=== PATIENT | female | born 1985 | race Caucasian/White ===

== ENCOUNTER 2017-01-01 16:50 | Emergency (ER) | payer OTHER ==
[2017-01-01 17:13] VITALS: BP 148/98
--- NOTE | 2017-01-01 17:57 | UC ---
General HPI - HPI Summary HPI Summary: ONE WEEK OF HIGH BLOOD PRESSURE, (150/100) ALSO HAS BEEN HAVING SEVERAL MILD HEADACHES OVER THE LAST WEEK, NOT SEVERE, BUT PERSISTENT, THAT GO AWAY WITH IBUPROFEN. HISTORY OF MIGRAINES. NO CHENGES IN VIOIN. NO MOTOR DEFICITS. HAS ALSO HAD INCREASED STRESS. NO CHEST PAIN. NO DIZZINESS. NO SHORTNESS OF BREATH. - History of Current Complaint Chief Complaint: UCGeneralIllness Stated Complaint: HIGH BP/HEADACHE Time Seen by Provider: 01/01/17 17:14 Hx Obtained From: Patient Onset/Duration: Gradual Onset, Lasting Weeks, Resolved - CURRENTLYT RESOLVED Onset Severity: Moderate Current Severity: None Associated Signs & Symptoms: Positive: Headache. Negative: Confusion, Cough, Chest Pain, Dizziness, Diarrhea, Dysuria, Edema, Fever, Nausea, Syncope, SOB, Trauma - Allergy/Home Medications Allergies/Adverse Reactions: Allergies Allergy/AdvReac Type Severity Reaction Status Date / Time Sumatriptan [From Imitrex] Allergy Severe Anaphylatic Verified 08/30/12 16:15 Shock bret Allergy Rash Uncoded 06/17/14 13:53 Home Medications: Home Medications NK [No Home Medications Reported] 01/01/17 [History Confirmed 01/01/17] PMH/Surg Hx/FS Hx/Imm Hx Previously Healthy: Yes Endocrine History Of: Denies: Diabetes, Thyroid Disease Cardiovascular History Of: Denies: Cardiac Disorders, Hypertension Respiratory History Of: Denies: COPD, Asthma GI/ History Of: Denies: Ulcer - Surgical History Surgical History: Yes Surgery Procedure, Year, and Place: tonsils Oct 2008 - Family History Known Family History: Negative: Cardiac Disease, Hypertension - Social History Occupation: Employed Full-time Lives: With Family Alcohol Use: None Substance Use Type: None Smoking Status (MU): Never Smoked Tobacco - Immunization History Most Recent Influenza Vaccination: unknown Most Recent Tetanus Shot: unknown Most Recent Pneumonia Vaccination: unknown Review of Systems Constitutional: Negative Skin: Negative Eyes: Negative ENT: Negative Respiratory: Negative Cardiovascular: Negative Gastrointestinal: Negative Genitourinary: Negative Motor: Negative Neurovascular: Negative Musculoskeletal: Negative Neurological: Headache - BAND LIKE HEADACHE AROUND HEAD, CURRENTLY RESOLVED Psychological: Negative All Other Systems Reviewed And Are Negative: Yes Physical Exam Triage Information Reviewed: Yes Appearance: Well-Appearing, No Pain Distress, Well-Nourished Vital Signs: Initial Vital Signs Temp 98.9 F 01/01/17 17:04 Pulse 89 01/01/17 17:04 Resp 18 01/01/17 17:04 BP 148/98 01/01/17 17:04 Pulse Ox 100 01/01/17 17:04 Vital Signs Reviewed: Yes Eye Exam: Normal ENT Exam: Normal ENT: Positive: Normal ENT inspection, Hearing grossly normal, Pharynx normal, TMs normal Dental Exam: Normal Neck exam: Normal Neck: Positive: Supple, Nontender, No Lymphadenopathy Respiratory Exam: Normal Respiratory: Positive: Chest non-tender, Lungs clear, Normal breath sounds, No respiratory distress, No accessory muscle use Cardiovascular Exam: Normal Cardiovascular: Positive: RRR, No Murmur, Pulses Normal, Brisk Capillary Refill Abdominal Exam: Normal Abdomen Description: Positive: Nontender, No Organomegaly Musculoskeletal Exam: Normal Musculoskeletal: Positive: Strength Intact, ROM Intact, No Edema Neurological Exam: Normal Neurological: Positive: Alert, Muscle Tone Normal, Other: - CN 2-12 INTACT Psychological Exam: Normal Psychological: Positive: Normal Response To Family Skin Exam: Normal Course/Dx - Differential Dx - Multi-Symptom Differential Diagnoses: Sepsis, Urinary Tract Infection Provider Diagnoses: HYPERTENSION. TENSION HEADACHE Discharge - Discharge Plan Condition: Stable Disposition: HOME Patient Education Materials: Tension Headache (ED), Hypertension (ED) Referrals: [facility] [place] [facility]FERRAL [Outside] Jocelynn Chávez MD [Medical Doctor] -
== END 2017-01-01 17:50 | disposition home or self-care (01) ==
LOC: UCEAST 16:50
DX: I10 Essential (primary) hypertension (principal); G44.209 Tension-type headache, unspecified, not intractable
CPT/HCPCS: 99211; G0463

== ENCOUNTER 2019-12-12 07:49 | Inpatient (IN) | payer OTHER ==
[2019-12-12] MEDS ORDERED: Buffered Lidocaine 1% SYRIN* 1 ML/SYRINGE INTRADERM ONE (08:38)
[2019-12-12] MEDS ORDERED: Misoprostol TAB* 100 MCG VAGINAL ONE (08:38)
[2019-12-12] MEDS ORDERED: Lactated Ringers 1000 ML Bag* 1,000 ML IV ONE (08:38)
[2019-12-12] MEDS ORDERED: Lactated Ringers 1000 ML Bag* 1,000 ML IV SCH (09:00)
--- NOTE | 2019-12-12 09:01 | HP ---
General Information - Reason for Visit Induction 39 2/7 weeks - General Information Maternal Age: 34 Grav: 2 Para: 1 SAB: 0 IEA: 0 Estimated Due Date: 12/17/19 Determined By: Early Ultrasound Maternal Blood Type and Rh: AB Positive - Results this Serology/RPR Result: Non-Reactive Rubella Result: Immune HBsAg Result: Negative HIV Result: Negative GBS Culture Result: Negative Past Medical History Delivery History: See Records Pertinent Past Medical History: See Records Pertinent Past Surgical History: See Records Pertinent Family History: See Records - Antepartal Records Antepartal Records: Reviewed, Complicated by: - chronic hypertension Review of Systems Constitutional: Comfortable CV Complaint: No Respiratory: Shortness of Breath: No Gastrointestinal: No Nausea/Vomiting, Normal Bowel Movement Genitourinary: No Dysuria, No Bleeding, No Leaking Fluid Musculoskeletal: No Complaint Neurological: No Headache Movement: Normal Exam Allergies/Adverse Reactions: Allergies MS Sumatriptan [From Imitrex] Allergy (Severe, Verified 08/30/12 16:15) Anaphylatic Shock bret Allergy (Uncoded 06/17/14 13:53) Rash T: 98.8 P : 90 R: 18 BP: 136/83 - Measurements Height: 5 ft 7 in Weight: 226 lb Body Mass Index (BMI): 35.4 Pre- Weight: 200 lb - Exam Breast: Breast Exam Deferred CVA: No CVA Tenderness Extremities: No Edema Heart: Normal Rhythm/Heart Sounds HEENT: No Significant Findings Lungs: Clear Bilaterally Rectal: Rectal Exam Deferred Reflexes: DTR 2+ Thyroid: No Thyromegaly - Abdominal Exam Abdomen Exam: Non-Tender - Ultrasound/Biophysical Profile Ultrasound Status: Bedside Exam - vertex by US at bedside Targeted Exam Findings Cervical Exam: 1cm Effacement: 50% Station: High Presenting Part: Vertex Membrane Status: Intact EFM Findings - External Monitor Findings Baseline Heart Rate: 140 External Monitor Findings: Accelerations Present, No Pattern of Variable or Late Decelerations, Variability Moderate, Baseline Stable Contractions: None Assessment/Plan - Assessment Pt 34yo G 2 P1001 at 39 2/7 weeks with chronic Hypertension - Obstetrical Risk Factors Obstetrical Risk Factors: Chronic Hypertension - Plan Plan: Cervical Ripening, Admit - Anticipate Vaginal Delivery
[2019-12-12 10:05] LABS: Urine Benzodiazepine Screen None Detected (None Detect); Urine Opiates Screen None Detected (None Detect)
[2019-12-12 14:05] LABS: ABS Eosinophils 0.1 10^3/ul (0-0.6); ABS Lymphocytes 1.3 10^3/ul (1.0-4.8); ABS Monocytes 0.5 10^3/ul (0-0.8); ABS Neutrophils 6.9 10^3/ul (1.5-7.7); Eosinophil % 1.1 %; Hematocrit 35 % (35-47); Hemoglobin 12.2 g/dL (12.0-16.0); Lymphocyte % 14.8 %; Mean Corpuscular HGB Conc 35 g/dL (31-36); Mean Corpuscular Hemoglobin 29 pg (27-31); Mean Corpuscular Volume 82 fL (80-97); Mean Platelet Volume 7.9 fL (7.4-10.4); Nucleated Red Blood Cells % 0.1; Platelet Count 305 10^3/uL (150-450); Red Blood Count 4.25 10^6 /uL (3.70-4.87); Red Cell Distribution Width 13 % (10-15); White Blood Count 8.8 10^3/uL (3.5-10.8)
[2019-12-12] MEDS: Labetalol TAB* 100 MG PO SCH (17:51)
[2019-12-12] MEDS: Famotidine TAB* 20 MG PO PRN (19:21)
[2019-12-13] MEDS ORDERED: Oxytocin in LR* 20 UNITS/1,000 ML BAG IVPB ONE (02:54)
[2019-12-13] MEDS ORDERED: Oxytocin in LR* 20 UNITS/1,000 ML BAG IVPB SCH (03:00)
[2019-12-13] MEDS: Labetalol TAB* 100 MG PO SCH (06:00)
[2019-12-13] MEDS: Famotidine TAB* 20 MG PO PRN (08:34)
[2019-12-13] MEDS ORDERED: Prenatal Vitamin TAB PO SCH (09:00)
== END 2019-12-13 10:51 | disposition home or self-care (01) | DRG 833 ==
LOC: MCHOBOUT 07:49 → MCHOB 08:42
PROVIDERS: ADMIT Obstetrics & Gynecology; ATTEND Obstetrics & Gynecology
PROC: 3E0P7VZ Introduction of Hormone into Female Reproductive, Via Natural or Artificial Opening (ICD-10-PCS; principal; 2019-12-12)
DX: O10.913 Unspecified pre-existing hypertension complicating pregnancy, third trimester (principal); Z88.8 Allergy status to other drugs, medicaments and biological substances; Z3A.39 39 weeks gestation of pregnancy
CPT/HCPCS: 36415; 76815; 80307; 85025; 86850; 86900; 86901; A9270-GY; G0480; S0191